=== PATIENT | female | born 1990 | race Caucasian/White ===

== ENCOUNTER 2023-03-28 00:30 | Emergency (ER) | payer MEDICARE, SELFPAY ==
[2023-03-28] VITALS (16 sets, daily range): BP systolic 106; BP diastolic 57; PULSE 72–90; RESP 12–20; TEMP 36.7; O2SAT 97–100; BMI 49.8
--- NOTE | 2023-03-28 00:30 | ECG_ITS ---
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
--- NOTE | 2023-03-28 01:11 | XR_ITS ---
The [place] [id number] Patient Name: RUSTAM BROOKS MRN: [id number] date: 1990 Sex: F Assigned Patient Location: ER Current Patient Location: ER Accession/Order Number: [id number] Exam Date: 03/28/2023 02:10 Report Date: 03/28/2023 02:26 At the request of: GENO MARKER Procedure: XR chest 1V EXAM: XR chest 1V HISTORY: CP COMPARISON: None available TECHNIQUE: Single frontal view chest x-ray FINDINGS: No lung consolidation, large pleural effusions, pneumothorax, or acute bony abnormality. Cardiac size is unremarkable. XR/XR chest 1V IMPRESSION: No radiographic evidence for acute chest abnormality. Electronically authenticated by: SORIN CARDOZA Date: 03/28/2023 02:26
--- NOTE | 2023-03-28 01:41 | ED.CHESTPAI1 ---
HPI - Chest Pain General Chief Complaint: Chest Pain Stated Complaint: CHST PAIN Time Seen by Provider: 03/28/23 01:11 Source: patient Mode of arrival: ambulance Limitations: no limitations History of Present Illness HPI narrative: This 32-year-old female with a history of bipolar disorder, anxiety, depression, PTSD who is status post tubal ligation so not concerned about presents for evaluation of palpitations and chest tightness. The patient came to the emergency department from work. She states she was at work earlier this evening and started feeling some chest tightness like the muscles in her chest were spasming associated with some mild shortness of breath. She took a 5 mg Zyprexa which is prescribed to her to take when necessary for anxiety or agitation but her symptoms did not improve. She went to lunch and after coming back from lunch took an additional Zyprexa. She states she has been under a lot of stress because she has been concerned that her boyfriend has been cheating on her recently. She states that she and her boyfriend a been together since January and she feels comfortable being with him, he is a great avani but she has trust issues. She denies any nausea vomiting or diarrhea. She has no abdominal pain or back pain. She has no lower extremity pain or swelling. She also states that she has had upper respiratory symptoms with cough and congestion for the past week. She has not had a fever. She does admit to tobacco use. Related Data Home Medications Medication Instructions Recorded Confirmed aripiprazole 10 mg tablet (Abilify) 10 mg PO DAILY 03/28/23 03/28/23 lamotrigine 25 mg tablet (Lamictal) 25 mg PO DAILY 03/28/23 03/28/23 olanzapine 5 mg tablet (Zyprexa) 5 mg PO DAILY 03/28/23 03/28/23 Allergies Allergy/AdvReac Type Severity Reaction Status Date / Time adhesive Allergy Verified 03/28/23 00:34 Penicillins Allergy Verified 03/28/23 00:34 Review of Systems ROS Status of ROS 10 or more systems reviewed and unremarkable except as noted in history and below [facility] Social History Smoking status: Current every day smoker Exam Narrative Exam Narrative: Nurses note and vital signs reviewed and patient is not hypoxic. General: The patient appears well and in no apparent distress. Patient is resting comfortably on cart. Skin: Warm, dry, no pallor noted. There is no rash noted. Head: Normocephalic, atraumatic Eye: Normal conjunctiva, no drainage, EOMI. PERRL Ears, Nose, Mouth, and Throat: oral mucosa is moist. Nares patent. Mouth without vesicles. Ear canals patent. Tm's without Erythema Cardiovascular: Regular Rate and Rhythm Respiratory: Patient is in no distress, no accessory muscle use, lungs are clear to auscultation, no wheezing, rales or rhonchi Back: non-tender, no CVA tenderness bilaterally to percussion. GI: Normal bowel sounds, no tenderness to palpation, no masses appreciated. No rebound, guarding, or rigidity noted. Musculoskeletal: The patient has no evidence of calf tenderness, no pitting edema, symmetrical pulses noted bilaterally Neurological: A&O x4, normal speech Psychiatric: Cooperative Constitutional Vital Signs, click to edit/add: Last Vital Signs Temp 98.1 F 03/28/23 00:30 Pulse 89 03/28/23 02:00 Resp 18 03/28/23 02:00 BP 106/57 03/28/23 00:31 Pulse Ox 99 03/28/23 02:00 O2 Del Method Room Air 03/28/23 00:30 Course Vital Signs Vital signs: Vital Signs Temperature 98.1 F 03/28/23 00:30 Pulse Rate 90 03/28/23 00:30 Respiratory Rate 16 03/28/23 00:30 Blood Pressure 106/57 03/28/23 00:30 Pulse Oximetry 98 03/28/23 00:30 Oxygen Delivery Method Room Air 03/28/23 00:30 Temperature 98.1 F 03/28/23 00:30 Pulse Rate 89 03/28/23 02:00 Respiratory Rate 18 03/28/23 02:00 Blood Pressure 106/57 03/28/23 00:31 Pulse Oximetry 99 03/28/23 02:00 Oxygen Delivery Method Room Air 03/28/23 00:30 MDM - Chest Pain MDM Narrative Medical decision making narrative: This 32-year-old female with a history of tobacco use and bipolar disorder/PTSD and anxiety is brought emergency department from work after she felt a squeezing sensation in the left side of her chest. They she has a similar episode last week after being concerned that her boyfriend was cheating on her. She is not on control. She was given 324 mg of aspirin prior to arrival and had taken 10 mg of by mouth and Zyprexa prior to arrival. EKG done upon arrival was a normal sinus rhythm. An IV was placed and I ordered IV fluids and Valium for her. She declined the Valium stating that she was feeling relax at this time. Her boyfriend has been in the emergency department with her and she is feeling calm and comfortable. Cardiac workup including troponin, d-dimer, CBC with differential and copy has a metabolic profile was ordered and is normal. Chest x-ray is negative for acute findings. The results of her labs and x-ray and EKG were discussed with her. She feels comfortable being discharged home at this time. She will follow up as an outpatient with her family physician. I encouraged her to quit smoking and her psychiatric medications as prescribed. She is in agreement with this plan. Medical Records Data Medical records narrative: The [address] [address] XRay Report Signed Patient: RUSTAM BROOKS MR#: [id number] : 1990 Acct:[id number] Age/Sex: 32 / F ADM Date: 03/28/23 Loc: ER Attending Dr: Ordering Physician: Geno Roberts Date of Service: 03/28/23 Procedure(s): XR chest 1V Accession Number(s): [id number] cc: Geno Roberts; Physician,Non-Staff M.D.~ The [address] [address] Patient Name: RUSTAM BROOKS MRN: [id number] date: 1990 Sex: F Assigned Patient Location: ER Current Patient Location: ER Accession/Order Number: [id number] Exam Date: 03/28/2023 02:10 Report Date: 03/28/2023 02:26 At the request of: GENO ROBERTS Procedure: XR chest 1V EXAM: XR chest 1V HISTORY: CP COMPARISON: None available TECHNIQUE: Single frontal view chest x-ray FINDINGS: No lung consolidation, large pleural effusions, pneumothorax, or acute bony abnormality. Cardiac size is unremarkable. XR/XR chest 1V IMPRESSION: No radiographic evidence for acute chest abnormality. Lab Data Labs: Lab Results 03/28/23 Range/Units 01:23 WBC 8.1 (4.0-11.0) 10^3/uL RBC 4.16 L (4.20-5.40) 10^6/uL Hgb 12.5 (12.0-16.0) g/dL Hct 36.6 (36.0-48.0) % MCV 88.0 (81.0-99.0) fL MCH 30.0 (26.7-34.0) pg MCHC 34.2 (29.9-35.2) g/dL RDW 12.2 (11.0-15.0) % Plt Count 225 (150-450) 10^3/uL MPV 10.3 (9.5-13.5) fL Neut % (Auto) 56.6 (43.0-75.0) % Lymph % (Auto) 33.7 (20.5-60.0) % Ray % (Auto) 7.1 (1.7-12.0) % Eos % (Auto) 1.8 (0.9-7.0) % Baso % (Auto) 0.6 (0.2-2.0) % Neut # (Auto) 4.6 (1.4-6.5) 10^3/uL Lymph # (Auto) 2.7 (1.2-3.8) 10^3/uL Ray # (Auto) 0.6 (0.3-0.8) 10^3/uL Eos # (Auto) 0.2 (0.0-0.7) 10^3/uL Baso # (Auto) 0.1 (0.0-0.1) 10^3/uL Abs Immat Gran (auto) 0.02 (0.00-0.03) 10^3/uL Imm/Tot Granulo (auto) 0.2 (0.0-0.5) % D-Dimer 0.27 (<=0.59) mg/L FEU Sodium 137 (136-145) mmol/L Potassium 3.4 L (3.5-5.1) mmol/L Chloride 103 (98-107) mmol/L Carbon Dioxide 24.9 (21.0-32.0) mmol/L Anion Gap 12.5 BUN 13.0 (7.0-18.0) mg/dL Creatinine 0.91 (0.55-1.02) mg/dL Est GFR ( Amer) >60 (>=60) Est GFR (Non-Af Amer) >60 (>=60) BUN/Creatinine Ratio 14.3 Glucose 96 (74-106) mg/dL Calcium 9.0 (8.5-10.1) mg/dL Total Bilirubin 0.4 (0.2-1.0) mg/dL AST 21 (15-37) U/L ALT 18 (14-59) U/L Alkaline Phosphatase 65 (46-116) U/L Troponin I High Sens 4.2 (4.0-51.3) pg/mL Total Protein 7.3 (6.4-8.2) g/dL Albumin 3.8 (3.4-5.0) g/dL Globulin 3.5 g/dL Albumin/Globulin Ratio 1.1 ECG Data Attestation: I personally reviewed and interpreted this ECG as follows: (Sinus rhythm at 76 beats for minute, normal axis, normal intervals, no acute ST segment elevation or T-wave inversion) Heart Score History: Slightly/Non-Suspicious ECG: Normal Age: <45 years Risk Factors: 1 or 2 Risk Factors Troponin: <Normal Limit Total Heart Score Recommendations & Risks:: 1 Discharge Plan Discharge Chief Complaint: Chest Pain Clinical Impression: Atypical chest pain Patient Disposition: Home, Self-Care Time of Disposition Decision: 02:38 Condition: Good Prescriptions / Home Meds: No Action olanzapine [Zyprexa] 5 mg tablet 5 mg PO DAILY lamotrigine [Lamictal] 25 mg tablet 25 mg PO DAILY aripiprazole [Abilify] 10 mg tablet 10 mg PO DAILY Instructions: Noncardiac Chest Pain (ED) Stand Alone Forms: Portal Instructions Referrals: Physician,Non-Staff, MD [Primary Care Provider] - 1 week
[2023-03-28 01:45] LABS: Basophils Absolute Auto 0.1 10^3/uL (0.0-0.1); Basophils Percent Auto 0.6 % (0.2-2.0); Eosinophils Absolute Auto 0.2 10^3/uL (0.0-0.7); Eosinophils Percent Auto 1.8 % (0.9-7.0); Hematocrit 36.6 % (36.0-48.0); Hemoglobin 12.5 g/dL (12.0-16.0); Immature Granulocytes Abs Auto 0.02 10^3/uL (0.00-0.03); Immature Granulocytes Pct Auto 0.2 % (0.0-0.5); Lymphocytes Absolute Auto 2.7 10^3/uL (1.2-3.8); Lymphocytes Percent Auto 33.7 % (20.5-60.0); Mean Corpuscular HGB Conc 34.2 g/dL (29.9-35.2); Mean Platelet Volume 10.3 fL (9.5-13.5); Monocytes Absolute Auto 0.6 10^3/uL (0.3-0.8); Monocytes Percent Auto 7.1 % (1.7-12.0); Neutrophils Absolute Auto 4.6 10^3/uL (1.4-6.5); Neutrophils Percent Auto 56.6 % (43.0-75.0); Platelet Count 225 10^3/uL (150-450); Red Blood Count 4.16 10^6/uL (4.20-5.40); Red Cell Distribution Width 12.2 % (11.0-15.0); White Blood Count 8.1 10^3/uL (4.0-11.0)
[2023-03-28] MEDS: 0.9 % SODIUM CHLORIDE 1,000 ML 1000 ML IV (01:52)
[2023-03-28 02:03] LABS: Alanine Aminotransferase 18 U/L (14-59); Albumin Globulin Ratio 1.1; Albumin Level 3.8 g/dL (3.4-5.0); Alkaline Phosphatase 65 U/L (46-116); Anion Gap 12.5; Aspartate Amino Transferase 21 U/L (15-37); BUN Creatinine Ratio 14.3; Bilirubin Total 0.4 mg/dL (0.2-1.0); Carbon Dioxide 24.9 mmol/L (21.0-32.0); Chloride 103 mmol/L (98-107); Estimated GFR (African America >60 (>=60); Estimated GFR (Non-African Ame >60 (>=60); Globulin 3.5 g/dL; Glucose 96 mg/dL (74-106); Potassium 3.4 mmol/L (3.5-5.1); Sodium 137 mmol/L (136-145); Total Protein 7.3 g/dL (6.4-8.2); Troponin I High Sensitivity 4.2 pg/mL (4.0-51.3)
[2023-03-28 02:07] LABS: D Dimer 0.27 mg/L FEU (<=0.59)
== END 2023-03-28 02:58 | disposition home or self-care (01) ==
PROVIDERS: Emergency Provider Emergency Medicine
DX: R07.89 Other chest pain (principal); F31.9 Bipolar disorder, unspecified; F41.9 Anxiety disorder, unspecified; F43.10 Post-traumatic stress disorder, unspecified; F17.210 Nicotine dependence, cigarettes, uncomplicated; Z79.899 Other long term (current) drug therapy
CPT/HCPCS: 36415; 71045; 80053; 84484; 85025; 85378; 93005; 99285